=== PATIENT | female | born 1950 | race Caucasian/White ===

== ENCOUNTER → 2018-03-27 | Outpatient (CLI) | payer MEDICARE, OTHER | END | disposition home or self-care (01) | LOC: SURG 14:23 | PROVIDERS: ATTEND Anesthesiology | DX: M54.12 Radiculopathy, cervical region (principal); M65.331 Trigger finger, right middle finger; M79.7 Fibromyalgia; M47.812 Spondylosis without myelopathy or radiculopathy, cervical region | CPT/HCPCS: 99214 ==

== ENCOUNTER → 2018-05-08 | Outpatient (CLI) | payer MEDICARE, OTHER | END | disposition home or self-care (01) | LOC: SURG 13:00 | PROVIDERS: ATTEND Anesthesiology | DX: M47.812 Spondylosis without myelopathy or radiculopathy, cervical region (principal) | CPT/HCPCS: 99214 ==

== ENCOUNTER → 2020-06-25 | Outpatient (CLI) | payer MEDICARE, OTHER ==
--- NOTE | 2020-06-25 11:19 | RAD ---
THYROID ULTRASOUND History: Thyroid nodule Comparison: None. Findings: Multiple sonographic images of the thyroid gland are submitted. Right lobe measured 4 x 1.5 x 1.5 cm. The left lobe measured 3.4 x 1.6 x 1 cm. Isthmus measured 0.2 cm AP thickness. There are several tiny hypoechoic cysts of the thyroid gland bilaterally. There is a hypoechoic, likely mostly cystic nodule of the posterior, inferior right gland up to 0.7 x 0.4 x 0.5 cm, no internal vascularity on color Doppler imaging. There is a 1.1 x 0.6 x 0.7 cm solid, solid heterogeneous nodule of the mid to inferior left gland laterally with some associated vascularity on color Doppler imaging. Impression: 1. There is a solid nodule of the mid left gland up to 1.1 cm, no previous exams to evaluate for change. There are other multiple cysts of the bilateral thyroid gland. Electronically signed by: Francisco Javier Yanes MD (06/25/2020 11:16 AM) [id number]
== END ==
LOC: US 09:18
PROVIDERS: ATTEND Family Medicine
DX: E04.1 Nontoxic single thyroid nodule (principal)
CPT/HCPCS: 76536

== ENCOUNTER → 2020-07-07 | Outpatient (CLI) | payer MEDICARE, OTHER ==
--- NOTE | 2020-07-09 10:20 | RAD ---
EXAM: Bilateral digital screening mammogram with tomosynthesis. HISTORY: 70-year-old female presents for screening mammography. TECHNIQUE: Full-field digital craniocaudal and mediolateral oblique 2D and 3D tomosynthesis images of both breasts are obtained for evaluation. Computer aided detection was applied. COMPARISON: 03/01/2018 BREAST PARENCHYMAL DENSITY: Level B - Scattered fibroglandular densities. FINDINGS: There is no new suspicious mass, microcalcification or region of architectural distortion. IMPRESSION: BI-RADS Category 2: Benign finding(s). RECOMMENDATION: Annual mammography is recommended. If your mammogram demonstrates that you have dense breast tissue, which could hide abnormalities, and if you have other risk factors for breast cancer that have been identified, you might benefit from supplemental screening tests that may be suggested by your ordering physician. Dense breast tissue, in and of itself, is a relatively common condition. This information is not provided to cause undue concern, but rather to raise your awareness and to promote discussion with your physician regarding the presence of other risk factors, in addition to dense breast tissue. A report of your mammography results will be sent to you and your physician. You should contact your physician if you have any questions or concerns regarding this report. Mammography is a sensitive method for finding small breast cancers, but it does not detect them all and is not a substitute for careful clinical examination. A negative mammogram does not negate a clinically suspicious finding and should not result in delay in biopsying a clinically suspicious abnormality. PQRS compliance statement - Patient information was entered into a reminder system with a target due date for the next mammogram. "Our facility is accredited by the [employer] Mammography Program." Electronically signed by: Tereza Medina MD (07/09/2020 10:17 AM) [id number]
== END ==
LOC: MAMMO 13:04
PROVIDERS: ATTEND Family Medicine
DX: Z12.31 Encounter for screening mammogram for malignant neoplasm of breast (principal)
CPT/HCPCS: 77063; 77067

== ENCOUNTER → 2021-06-17 | Outpatient (CLI) | payer MEDICARE, OTHER ==
--- NOTE | 2021-06-18 04:03 | RAD ---
US THYROID History: Reason: NONTOXIC MULTINODULAR GOITER / Spl. Instructions: / History: Comparison: June 25, 2020 Technique: Multiple grayscale and color Doppler images of the thyroid gland were obtained. Findings: Right thyroid lobe: 3.4 x 1.4 x 1.3 cm. Homogeneous echotexture. Left thyroid lobe: 2.1 x 1.3 x 1.2 cm. Homogeneous echotexture. Isthmus: 0.2 cm. Multiple bilateral thyroid nodules. Represent a sample included below: -Mixed cystic and solid right lateral nodule measures 0.5 x 0.4 x 0.3 cm. TI-RADS 3. Similar overall size compared to prior with increased complexity. -Solid hypoechoic left mid thyroid nodule measures 1.2 x 0.6 x 0.7 cm. There are punctate calcificati ons. Increased compared to prior. TI-RADS 5. ACR Thyroid Imaging, Reporting And Data System (TI-RADS): White Paper Of The ACR TI-RADS Committee. J ournal of the [employer], volume 14, issue 5, pages 587-595 (January 2017). IMPRESSION: 1. Increased TI-RADS 5 left mid thyroid nodule. Recommend fine-needle aspiration to further evaluate . Electronically signed by: Dwight Rubio DO (06/18/2021 4:01 AM) [facility]
== END ==
LOC: US 14:57
PROVIDERS: ATTEND Otolaryngology
DX: E04.2 Nontoxic multinodular goiter (principal)
CPT/HCPCS: 76536

== ENCOUNTER → 2021-10-18 | Outpatient (CLI) | payer MEDICARE, OTHER ==
--- NOTE | 2021-10-18 15:31 | RAD ---
EXAM: Chest, 2 views. HISTORY: Short of breath. COMPARISON: None. FINDINGS: 2 views of the chest are obtained. There is no infiltrate, pleural effusion or pneumothorax . The heart is normal in size. There is a calcified granuloma within the lateral left upper lobe. IMPRESSION: No acute pulmonary finding. Electronically signed by: Tereza Medina MD (10/18/2021 3:29 PM) [id number]
== END ==
LOC: RAD 14:48
PROVIDERS: ATTEND Family Medicine
DX: J84.10 Pulmonary fibrosis, unspecified (principal); R05.9 Cough, unspecified; R06.02 Shortness of breath
CPT/HCPCS: 71046